=== PATIENT | male | born 1955 | race Hispanic/Latino ===

== ENCOUNTER 2016-04-28 15:38 | Emergency (ER) | payer SELFPAY ==
[2016-04-28] MEDS ORDERED: NORMAL SALINE 10 ML SYRINGE FLUSH IVP PRN (15:50)
[2016-04-28] MEDS ORDERED: Sodium Chloride 0.9% 1,000 ML, Magnesium Sulfate 2gm (Premix) 50 ML with Multivitamin I... IV ONE ×5 (15:52)
[2016-04-28 15:58] VITALS: RESP 18; TEMP 98.6
[2016-04-28] MEDS ORDERED: Sodium Chloride 0.9% 1,000 ML with Multivitamin Inj 10 ML, Thiamine Inj 100 MG, Folic A... IV ONE ×5 (16:00)
[2016-04-28 16:05] LABS: BASOPHILS # (AUTO) 0.06 10*3/UL; BASOPHILS % (AUTO) 0.8 % (0-1); EOSINOPHILS % (AUTO) 0.1 % (0-8); HEMATOCRIT 45.1 % (42.0-52.0); HEMOGLOBIN 15.3 g/dL (14.0-18.0); IMM GRAN % (AUTO) 0.1 % (0-5); IMM GRAN# (AUTO) 0.01 10*3/UL; LYMPHOCYTES # (AUTO) 1.34 10*3/uL; LYMPHOCYTES % (AUTO) 18.2 % (10-50); MEAN CORPUSCULAR HEMOGLOBIN 32.8 PG (27-31); MEAN CORPUSCULAR HGB CONC 33.9 g/dL (33-37); MONOCYTES # (AUTO) 0.91 10*3/UL (0.3-0.8); MONOCYTES % (AUTO) 12.4 % (5-15); NEUTROPHILS # (AUTO) 5.02 10*3/UL; NEUTROPHILS % (AUTO) 68.4 % (50-80); PLATELET MORPHOLOGY COMMENT NORMAL MORPHOLOGY (NORM); RDW COEFFICIENT OF VARIATION 14.8 % (11.5-14.5); RED BLOOD COUNT 4.66 10^6/uL (4.70-6.10); WHITE BLOOD COUNT 7.35 10^3/uL (4.8-10.8)
[2016-04-28 16:16] LABS: PROTHROMBIN TIME 10.3 secs (9.7-11.4)
[2016-04-28 16:18] LABS: ASPARTATE AMINO TRANSFERASE 42 IU/L (21-57); BILIRUBIN,TOTAL 1.1 mg/dL (0.3-1.2); BLOOD UREA NITROGEN 10 mg/dL (7-22); CHLORIDE 101 meq/L (98-112); CREATININE 0.8 mg/dL (0.70-1.50); EST GLOMERULAR FILTRATION > 60 (>60 ml/min/1.73m(2)); GLUCOSE 107 mg/dL (78-110); MAGNESIUM 1.7 mg/dL (1.6-2.4); POTASSIUM 3.5 meq/L (3.8-5.2); SERUM ALCOHOL 221 mg/dL (0-10); SODIUM 141 meq/L (135-145); TOTAL PROTEIN 7.6 g/dL (6.1-8.0)
--- NOTE | 2016-04-28 16:20 | PDOC ---
General Adult HPI - General Chief Complaint: General Medical Stated Complaint: Not feeling right Date Seen by Provider: 04/28/16 Time Seen by Provider: 15:45 Source: POSITIVE: Patient Exam Limitations: POSITIVE: No limitations Nurse's Notes Reviewed & Considered: Yes - History of Present Illness Initial Comment: The patient is a 60-year-old male who presents to the emergency department after a syncopal event 2 days ago. He states that 2 days ago he was at a friend 's house. He states that he got up to leave and subsequently became lightheaded. He states that he felt like he was going to pass out and then subsequently did pass out. When he woke up the other people in the house were standing over him looking at him. He states that he was only unconscious for a short period of time. Since that time he states he just still feels not right. He reports some unusual sensation across his jaw bilaterally although he denies pain. He continues to have some dizziness although he has not had any further syncope. He denies headache or chest pain. He has not had any pain or swelling in his extremities and denies numbness or weakness in his extremities. He does admit that he is an alcoholic drinking greater than a pint of vodka daily. He also uses marijuana regularly and smokes. He states he has not been diagnosed with any medical issues otherwise and does not take any prescription medications. Have you received a tetanus shot in the past 10 years?: Yes - Patient Home Medications Home Medications: Home Medications NK [No Home Medications Reported] 04/28/16 - Patient Allergies Allergies/Adverse Reactions: Allergies Allergy/AdvReac Type Severity Reaction Status Date / Time No Known Drug Allergies Allergy NOT Verified 04/28/16 15:45 APPLICABLE Past Medical History - heen HEENT History: Denies History Cardiovascular History: Denies History Respiratory History: Denies History Gastrointestinal History: Denies History Genitourinary History: Denies History Endocrine History: Denies History Musculoskeletal History: Denies History Prosthesis or Implant: No Neurological History: Denies History Blood Disorders: Denies History Psychiatric History: Substance Abuse, Other (please comment) Additional Psychiatric History: "ALCOHOLIC" I SEE SFL History of Sexually Transmitted Diseases: No Cancer History: Denies History In Past Year Been Physically Harmed or Verbally Threatened: No History of MDRO: Unknown History of Other Communicable Diseases: No Tobacco Use: Current Every Day Smoker Alcohol Use: Heavy Type of alcohol normally used: Hard Liquor How much alcohol do you normally drink a day?: [place] A DAY Substance Use Type: None Previous Surgical History: No Anesthesia Reactions: No Malignant Hyperthermia: No Significant Family History: No pertinent family hx Past Medical History Reviewed: Reviewed - No Changes ROS - Limitations ROS Limitations: No Limitations Constitution: DENIES: Chills, Fever Cardiovascular: DENIES: Chest Pain, Heart Racing, Heart Palpitations, Edema Respiratory: REPORTS: Denies Resp Symptoms. DENIES: Shortness Of Breath Neurological: REPORTS: Dizziness, Tingling (jaw). DENIES: Headache, Numbness, Seizure Activity, Weakness Gastrointestinal: DENIES: Abdominal Pain, Nausea, Vomitting, Diarrhea, Black Stools, Bloody Stools Musculoskeletal: REPORTS: Denies MS Symptoms Eyes: REPORTS: Denies Symptoms ENT: REPORTS: Denies Symptoms Skin: DENIES: Rash General Adult Exam - General Appearance General Appearance: POSITIVE: Alert, Cooperative, No Acute Distress - HEENT HEENT: POSITIVE: Head Inspection Nml, Eyes Inspection Nml, Ears Inspection Nml, Nose Inspection Nml, Pharynx Inspect. Nml, PERRL, EOMI - Neck Neck: POSITIVE: Normal Inspection. NEGATIVE: Lymphadenopathy - Respiratory Respiratory: POSITIVE: No Respiratory Distress, Breath Sounds Normal - Cardiovascular Cardiovascular: POSITIVE: Regular Rate & Rhythm, No Murmur - Abdomen Abdomen: Soft: (All Quadrants), Denies Tenderness: (All Quadrants), No Distention: (All Quadrants) - Skin Skin: POSITIVE: Normal Color, No Rash - Extremities Extremity: Normal ROM: (All Extremities), Normal Inspection: (All Extremities) - Neurological / Psychological Neurological: POSITIVE: Affect Apporpriate, Oriented X3, spray stainer Normal As Tested, Motor Normal, Sensation Normal, Other (No focal neurologic deficit) General Adult Progress - Results Reviewed by me Lab Results Reviewed: Yes Lab Results:: Laboratory Results 04/28/16 04/28/16 Range/Units 15:50 16:02 WBC 7.35 (4.8-10.8) 10^3/uL RBC 4.66 L (4.70-6.10) 10^6/uL Hgb 15.3 (14.0-18.0) g/dL Hct 45.1 (42.0-52.0) % MCV 96.8 H (80-90) FL MCH 32.8 H (27-31) PG MCHC 33.9 (33-37) g/dL RDW Std Deviation 51.3 H (39-50) fL RDW Coeff of Vadim 14.8 H (11.5-14.5) % Plt Count 175 (140-350) 10*3/uL MPV 10.0 (7.4-12.2) FL Immature Gran % (Auto) 0.1 (0-5) % Neut % (Auto) 68.4 (50-80) % Lymph % (Auto) 18.2 (10-50) % [place] % (Auto) 12.4 (5-15) % Eos % (Auto) 0.1 (0-8) % Baso % (Auto) 0.8 (0-1) % Immature Gran # (Auto) 0.01 10*3/UL Neut # (Auto) 5.02 10*3/UL Lymph # (Auto) 1.34 10*3/uL [place] # (Auto) 0.91 H (0.3-0.8) 10*3/UL Eos # (Auto) 0.01 10*3/UL Baso # (Auto) 0.06 10*3/UL WBC Morphology Comment Normal morphology (NORM) Plt Morphology Comment Normal morphology (NORM) RBC Morph Comment Normal morphology (NORM) PT 10.3 (9.7-11.4) secs INR 1.00 (0.00-5.90) N/A Sodium 141 (135-145) meq/L Potassium 3.5 L (3.8-5.2) meq/L Chloride 101 (98-112) meq/L Carbon Dioxide 21 L (23-33) meq/L Anion Gap 19 (5-20) BUN 10 (7-22) mg/dL Creatinine 0.8 (0.70-1.50) mg/dL Estimated GFR > 60 (>60 ml/min/1.73m(2)) BUN/Creatinine Ratio 12.50 (6-20) Glucose 107 (78-110) mg/dL Calculated Osmolality 290.0 (267-292) mOsm/kg Calcium 9.0 (8.7-10.7) mg/dL Magnesium 1.7 (1.6-2.4) mg/dL Total Bilirubin 1.1 (0.3-1.2) mg/dL AST 42 (21-57) IU/L ALT 35 (21-72) IU/L Alkaline Phosphatase 94 (38-126) IU/L Troponin I < 0.012 (< 0.040) ng/mL Total Protein 7.6 (6.1-8.0) g/dL Albumin 4.6 (3.5-4.8) g/dL Globulin 3.0 (2.50-4.10) g/dL Albumin/Globulin Ratio 1.50 (1.3-2.0) mg/g TSH 1.59 (0.2700-4.2000) uIU/mL Serum Alcohol 221 H (0-10) mg/dL EKG Interpreted/Reviewed By Me:: Yes EKG Interpretation:: POSITIVE: Normal Sinus Rhythm, Normal Rate, Normal Intervals, Normal QRS, Normal ST/T - Patient's Progress MDM / ED Course: The patient was mildly tachycardic on arrival with a heart rate in the 120s, this did elevate slightly with standing, blood pressure remained basically unchanged with standing. He received a banana bag while here in the emergency room. His EKG is essentially unremarkable and is lab work is all essentially unremarkable as well other than a blood alcohol of 220. At this point the exact cause of his syncope is unclear. This may have been hypovolemic, vagal or alcohol related. Cannot completely rule out the possibility of arrhythmia. Some of his dizziness may be related to inner ear disturbance or related to alcohol use. He was advised to decrease or stop drinking. In addition he is advised return to the emergency room if he develops any further syncope, chest pain, any worsening or change in symptoms. He will follow-up with primary care in approximately 1 week. - Consult Counseled: POSITIVE: Patient, RE: Lab Results, RE: DX, RE: Need for F/U Patient Care Time - Estimated PCT Patient Care Time (In Minutes): 35 Vital Signs - Recent Vital Signs Vital Signs: Vital Signs (Last 8 hours) Temp Pulse Pulse Pulse Pulse Resp BP 04/28/16 15:50 122 H 120 H 131 H 04/28/16 15:40 98.6 F 122 H 18 148/100 BP BP BP 04/28/16 15:50 148/100 152/97 127/112 04/28/16 15:40 - VS Reviewed Vital Signs Reviewed: Yes Discharge Clinical Impression: Alcohol abuse, Syncope Condition: Stable Patient Instructions Given at Discharge: Syncope (ED) Additional Instructions: The exact cause of your passing out episode 2 days ago is unclear. Some of the dizziness may be related to an inner ear disturbance. The EKG done in your heart and all the blood work done today was unremarkable and normal except for a blood alcohol of 220. Would recommend cutting back or quitting alcohol consumption. Push fluids. Return to the emergency room if further syncope, chest pain, any worsening or change in symptoms. Follow-up with primary care provider in one week. Follow Up With: NONE,NONE [Primary Care Provider] -
--- NOTE | 2016-04-28 16:23 | EKG ---
[address] [address] Measurements Intervals [place] Rate: 90 P: 68 NC: 158 QRS: -24 QRSD: 114 T: -12 QT: 387 QTc: 434 Interpretive Statements SINUS RHYTHM WITH SINUS ARRHYTHMIA BORDERLINE LEFT AXIS DEVIATION [QRS AXIS < -20] INCOMPLETE RIGHT BUNDLE BRANCH BLOCK [90+ ms QRS DURATION, TERMINAL R IN V1/V2, 40+ ms S IN I/aVL/V4/V5/V6] Compared to ECG 08/23/2014 22:17:53 No significant changes Electronically Signed On 04-29-16 09:38:30 MST by Cruzito Hassan MD [email or web address]
== END 2016-04-28 17:55 | disposition home or self-care (01) ==
LOC: ER 15:38
DX: F10.129 Alcohol abuse with intoxication, unspecified (principal); R55 Syncope and collapse
CPT/HCPCS: 80053; 80320; 83735; 84443; 84484; 85025; 85610; 93005; 93010; J3475; 96365; 96366; 99283; J3411; J7030